=== PATIENT | male | born 1995 | race Caucasian/White ===

== ENCOUNTER 2017-07-18 12:43 | Emergency (ER) | payer OTHER ==
[~2017-07-18] VITALS: Ht 180.3 cm; Wt 83.9 kg
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
--- NOTE | 2017-07-18 12:43 | NUR ---
Patient ambulated to bed 10. RN evaluating patient at bedside.
[2017-07-18] MEDS ORDERED: NACL 0.9% 1,000 ML IV ONE (12:55)
[2017-07-18 12:56] VITALS: BP 132/74
--- NOTE | 2017-07-18 13:00 | NUR ---
XRAY AT BEDSIDE.
--- NOTE | 2017-07-18 13:03 | NUR ---
PT GOING TO CT SCAN AT THIS TIME.
--- NOTE | 2017-07-18 13:18 | NUR ---
PT BACK FROM CT
--- NOTE | 2017-07-18 13:19 | NUR ---
PT BACK FROM CT AT THIS TIME.
--- NOTE | 2017-07-18 13:23 | NUR ---
[place] AT BEDSIDE.
[2017-07-18 13:41] LABS: BASOPHILS # (AUTO) 0.1 K/uL (0.00-0.22); BASOPHILS % (AUTO) 0.6 % (0.0-2.0); EOSINOPHILS # (AUTO) 0.5 K/uL (0-0.4); EOSINOPHILS % (AUTO) 5.6 % (0.0-4.0); HEMATOCRIT 45.7 % (36-52); HEMOGLOBIN 15.4 g/dL (12.0-18.0); LYMPHOCYTES # (AUTO) 3.3 K/uL (2.0-11.5); LYMPHOCYTES % (AUTO) 37.3 % (20.5-51.1); MEAN CORPUSCULAR HEMOGLOBIN 31 pg (27-31); MEAN CORPUSCULAR HGB CONC 34 g/dL (33-37); MEAN CORPUSCULAR VOLUME 91.8 fL (80-94); MONOCYTES # (AUTO) 0.8 K/uL (0.8-1.0); MONOCYTES % (AUTO) 9.6 % (1.7-9.3); NEUTROPHILS # (AUTO) 4.1 K/uL (1.8-7.7); NEUTROPHILS % (AUTO) 46.9 % (42.2-75.2); PLATELET COUNT (AUTO) 271 K/uL (140-450); RED BLOOD CELL COUNT(AUTO) 4.97 MIL/uL (4.20-6.10); RED CELL DISTRIBUTION WIDTH 13.4 % (11.6-13.7); WHITE BLOOD COUNT (AUTO) 8.8 K/uL (4.5-11.0)
[2017-07-18 13:57] LABS: PROTHROMBIN TIME 10.4 secs (10.8-13.4)
[2017-07-18 13:59] LABS: ANION GAP 19.6 (8-16); CARBON DIOXIDE 20.7 mmol/L (21-32); CREATININE 1.1 mg/dL (0.7-1.3); POTASSIUM 3.3 mmol/L (3.5-5.1)
[2017-07-18 14:02] LABS: ALBUMIN 3.9 g/dL (3.4-5.0); TOTAL BILIRUBIN 0.2 mg/dL (0.0-1.0)
--- NOTE | 2017-07-18 14:09 | NUR ---
PROVIED URENAL ; URENATED 600 CC;YELLOWISH.
[2017-07-18] MEDS ORDERED: LIDOCAINE MPF 1% - **ER/OR** 10 MG/ML VIAL INJ ONE (14:15)
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
[2017-07-18 14:58] VITALS: BP 124/68
--- NOTE | 2017-07-18 14:58 | NUR ---
Patient discharged with v/s stable. Written and verbal after care instructions given and explained. Patient verbalized understanding. Ambulatory with steady gait. All questions addressed prior to discharge. Advised to follow up with PMD.
== END 2017-07-18 14:58 | disposition home or self-care (01) ==
LOC: MED 12:43
DX: S31.109A Unspecified open wound of abdominal wall, unspecified quadrant without penetration into peritoneal cavity, initial encounter (principal); W45.8XXA Other foreign body or object entering through skin, initial encounter; Y93.89 Activity, other specified; Y92.89 Other specified places as the place of occurrence of the external cause; Y99.8 Other external cause status
CPT/HCPCS: 12001; 36415; 74177; 80053; 85025; 85610; 85730; 86886; 86900; 86901; 90471; 90715; 93005; 96360; 99285; J2001; Q9967